=== PATIENT | male | born 1935 | race Caucasian/White ===

== ENCOUNTER → 2017-07-05 | Outpatient (CLI) | payer OTHER, BC ==
[~2017-07-05] VITALS: Ht 172.7 cm; Wt 67.6 kg
[~2017-07-05] MED LIST: AZELASTINE137 MCG/0. NASAL; BENADRYL25 MG PO; CIALIS10 MG PO; CO Q-10200 MG PO; COZAAR 25 MG TA25 M2 PO; COZAAR 50 MG TA50 M2 PO; FLECAINIDE ACE150 MG PO; FLEXI JOINT TA1 EAC1 PO; FLORASTOR250 MG PO; GINGER500 MG PO; GNP HEADACHE P1 EACH PO; LOW DOSE ASPIRI81 M1 PO; MELATONIN3 MG PO; MUCINEX600 MG PO; MULTIVITAMINS1 EAC7 PO; OMEGA-31000 M1 PO; PRAVASTATIN SOD20 MG PO; RANITIDINE 150150 M1 PO; TIMOLOL MALEATE5 M1 OPHTHALMIC; TOPROL XL25 MG PO; TUMERIC PO; ZETIA10 MG PO; ZOLOFT25 MG PO
--- NOTE | ~2017-07-05 | P ---
[facility] [place] [address] PROCEDURE REPORT Name: OREN ANGULO Room #: REG [facility]#: [id number] Admission: 07/05/17 Attend Phys: Trip Hallman MD Discharge: Date of : 39 Report #: [id number] THIS REPORT FOR: //name// CC: Dr. Na BLANDON BRIEF HISTORY: The patient is an 82-year-old male who has a history of colon polyps. He also has family history of colon polyps in both parents. Mother had a pelvic cancer. He is not clear whether it was cervical or ovarian. PREOPERATIVE DIAGNOSIS: High-risk screening colonoscopy due to history of polyps and family history of polyps. POSTOPERATIVE DIAGNOSES: 1. Oxza-yp-xztecyum sigmoid diverticulosis coli. 2. Moderate internal hemorrhoids. MEDICATIONS: Deep sedation with propofol for anesthesia. SPECIMEN: None. ESTIMATED BLOOD LOSS: None. PROCEDURE: Colonoscopy to cecum and terminal ileum. FINDINGS: Prior to propofol sedation, the procedure of colonoscopy was discussed with the patient as well as potential risks and its complications. He indicates he understands and desires to proceed. DESCRIPTION OF PROCEDURE: With the patient in the left lateral decubitus position, digital examination was completed, which revealed no abnormalities. Subsequently, the [employer]elerik video colonoscope was introduced in the rectum and advanced under direct vision to the cecum. Done with minimal difficulty. The cecum was identified by the ileocecal valve and the appendiceal orifice. I was able to visualize the distal segment of the terminal ileum, which was inspected and noted to be unremarkable. At that point, the scope was slowly withdrawn and careful circumferential views obtained, including retroflexing the scope in the ascending colon. Upon slow withdrawal of the scope, the prep was noted to be excellent. The mucosa was within normal limits, normal vascular pattern and normal light reflex. As we withdrew the scope, no neoplastic lesions were seen. No mucosal abnormalities were seen on today's examination. As we withdrew the scope through the sigmoid colon, there was noted to be [id number]-qyzkboks sigmoid diverticular disease, without endoscopic evidence of diverticulitis. Scope was withdrawn in the rectum. Upon retroflexion, moderate internal hemorrhoids were seen. Scope was withdrawn. The patient tolerated the procedure well. [address] [address] PROCEDURE REPORT Name: OREN ANGULO Room #: REG [facility] Gerda#: [id number] Admission: 07/05/17 Attend Phys: Trip Hallman MD Discharge: Date of : 39 Report #: [id number] CONDITION OF THE PATIENT UPON DISCHARGE: Following procedure, the patient drowsy, arousable and conversant. He will be discharged to home when fully ambulatory. INSTRUCTIONS TO THE PATIENT AND FAMILY AT THE TIME OF DISCHARGE: No neoplastic lesions were seen. He reports strong family history of colon polyps. I do not have those details. However, in the past, he was advised to have colonoscopy every 5 years due to his family history. He may consider a followup colon exam in 5 years. However, I would base that on his clinical status in 5 years hence. He will return to care of Dr. Na Blandon and return to see me as needed. Last colonoscopy was about 5 years ago. Withdrawal time from the cecum was 13 minutes 57 seconds. <ELECTRONICALLY SIGNED> By: Trip Hallman MD 07/09/17 1617 [id number] Trip Hallman MD /nt
== END | disposition home or self-care (01) ==
LOC: GI 06:54
DX: Z09 Encounter for follow-up examination after completed treatment for conditions other than malignant neoplasm (principal); Z86.010 Personal history of colon polyps; K57.30 Diverticulosis of large intestine without perforation or abscess without bleeding; K64.8 Other hemorrhoids; Z80.8 Family history of malignant neoplasm of other organs or systems
CPT/HCPCS: 62110; 62900